=== PATIENT | male | born 1965 | race African-American/Black ===

== ENCOUNTER 2022-04-13 14:33 | Emergency (ER) | payer OTHER, SELFPAY ==
--- NOTE | ~2022-04-13 | XR_ITS ---
EXAMINATION: XR chest 1V portable 04/13/2022 15:47 INDICATION: Unresponsive. Hypertension. PROCEDURE: AP portable chest COMPARISON: No prior studies for comparison. FINDINGS: The lungs are clear. The cardiomediastinal silhouette is within normal limits. There are no pleural effusions. There is no pneumothorax suspected. IMPRESSION: 1: NO ACUTE CARDIOPULMONARY DISEASE. Reviewed, dictated and finalized at location B.
--- NOTE | ~2022-04-13 | CT_ITS ---
EXAMINATION: CT cervical spine wo con DATE: 04/13/2022 16:45 INDICATION: Neck injury. Unresponsive. TECHNIQUE: Computed tomography (CT) of the cervical spine was performed without intravenous contrast. Automated exposure control and iterative reconstruction technique were employed. The dose-length pro duct was 509.30 mGy-cm. COMPARISON: None FINDINGS: There is 2 mm retrolisthesis of C4 on C5, C5 on C6, and C6 on C7. Vertebral body heights ar e normal. There is severely decreased disc height from C3-C4 through C6-C7 with endplate remodeling. The following disc levels are specifically discussed: C2-C3: There is severe right and mild left uncovertebral joint osteoarthritis. There is mild bilatera l facet joint osteoarthritis. There is mild right neural foraminal stenosis. There is mild central ca nal stenosis. C3-C4: There is severe right and moderate left uncovertebral joint osteoarthritis. There is mild bila teral facet joint osteoarthritis. There is mild right neural foraminal stenosis. There is mild centra l canal stenosis. C4-C5: There is severe bilateral uncovertebral joint osteoarthritis. There is no facet joint osteoart hritis. There is mild left neural foraminal stenosis. There is mild central canal stenosis. C5-C6: There is severe bilateral uncovertebral joint osteoarthritis. There is mild bilateral facet edward int osteoarthritis. There is mild bilateral neural foraminal stenosis. There is mild central canal st enosis. C6-C7: There is severe bilateral uncovertebral joint osteoarthritis. There is moderate bilateral face t joint osteoarthritis. There is mild right and moderate left neural foraminal stenosis. There is mil d central canal stenosis. C7-T1: There is mild right uncovertebral joint osteoarthritis. There is moderate right and severe lef t facet joint osteoarthritis. There is mild bilateral neural foraminal stenosis. There is no central canal stenosis. IMPRESSION: 1. No fracture. 2. Severe cervical spondylosis. Reviewed, dictated and finalized at location A.
--- NOTE | ~2022-04-13 | CT_ITS ---
EXAMINATION: CT brain wo con DATE: 04/13/2022 16:44 INDICATION: Unresponsive. TECHNIQUE: Computed tomography (CT) of the head was performed without intravenous contrast. The mA wa s adjusted according to patient size. Iterative reconstruction technique was employed. The dose-lengt h product was 983.67 mGy-cm. COMPARISON: None FINDINGS: There is no intracranial hemorrhage, acute infarction, or abnormal intracranial mass lesion . The ventricles are normal in size. There is an old blowout fracture of medial wall of right orbit. The paranasal sinuses are clear. The mastoid air cells are normal. Partially visualized are fracture deformities of the nasal bones. IMPRESSION: 1. Normal brain. Reviewed, dictated and finalized at location A. IMPRESSION: 1. Normal brain.
[2022-04-13 14:53] VITALS: BP 139/108; PULSE 92; RESP 14; TEMP 36.1; O2SAT 95
--- NOTE | 2022-04-13 15:03 | ED.WEAKNESS ---
HPI - Weakness General Chief complaint: Weakness Stated complaint: weakness, ETOH, laying in front yard Time Seen by Provider: 04/13/22 15:03 Source: patient, EMS and RN notes reviewed Mode of arrival: EMS Limitations: no limitations History of Present Illness HPI Narrative: 56 years old -[place] male brought to the emergency room by ambulance because of weakness. Patient was found laying in front yard waiting for the bus. He denies any loss of consciousness, fall, head injury or any other injuries. Just feels mad because the bus waiting time. He denies loss of consciousness, head injury, or any other injuries. 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 Last urination was handy man today. He denies any suicidal or homicidal ideation. Related Data Allergies Allergy/AdvReac Type Severity Reaction Status Date / Time No Known Allergies Allergy Verified 04/13/22 15:04 Review of Systems Review of Systems: All systems reviewed & are unremarkable except as noted in HPI and below Exam Narrative: General appearance: Well-developed, well-nourished Skin: Normal color Head: Normocephalic, nontraumatic Eyes: Clear conjunctiva ENT: Oropharynx normal, ears normal, nose normal Neck: Supple, nontender Chest and respiratory: Airway patent, no respiratory distress, no accessory muscle use Heart: Regular rate/rhythm Abdomen: Soft, nontender, no organomegaly, quiet bowel sounds Vascular: Normal peripheral pulses, normal capillary refill. Musculoskeletal: Normal range of motion, nontender back Neurologic: Alert and oriented ?3, ANGIOGRAPHY NURSE is normal as tested, no gross motor deficit Course Vital Signs Vital signs: Vital Signs Temperature 36.1 C L 04/13/22 14:53 Pulse Rate 92 04/13/22 14:53 Respiratory Rate 14 04/13/22 14:53 Blood Pressure 139/108 H 04/13/22 14:53 Pulse Oximetry 95 04/13/22 14:53 Oxygen Delivery Room Air 04/13/22 14:53 Temperature 36.1 C L 04/13/22 14:53 Pulse Rate 77 04/13/22 15:25 Respiratory Rate 12 04/13/22 15:25 Blood Pressure 114/78 04/13/22 15:25 Pulse Oximetry 100 04/13/22 15:25 Oxygen Delivery Room Air 04/13/22 14:53 MDM - Weakness Differential Diagnosis Differential diagnosis: Likely hypoglycemia, dehydration and other (Alcoholic intoxication, drug abuse, electrolyte imbalance) Lab Data Result diagrams: 04/13/22 15:19 04/13/22 15:19 Labs: Lab Results 04/13/22 04/13/22 04/13/22 Range/Units 15:19 15:19 15:19 WBC 4.4 L (4.5-10.0) K/mm3 RBC 3.91 L (4.6-6.20) M/mm3 Hgb 12.5 L (14.0-18.0) g/dL Hct 36.2 L (42.0-52.0) % MCV 92.6 (80-100) fl MCH 32.0 (26-34) pg MCHC 34.5 (32-36) g/dl RDW 14.0 (11.5-14.5) % Plt Count 239 (150-375) k/mm3 MPV 8.9 (7.4-10.4) fl Immature Gran % (Auto) 0.0 (0-0.5) % Neut % (Auto) 55.4 (45.5-73.1) % Lymph % (Auto) 36.4 (18.3-44.2) % [place] % (Auto) 6.6 (2.6-8.5) % Eos % (Auto) 1.4 (0-4.4) % Baso % (Auto) 0.2 (0.2-1.2) % Lymph # (Auto) 1.60 (0.9-3.2) K/mm3 [place] # (Auto) 0.3 (0.1-0.6) K/mm3 Eos # (Auto) 0.1 (0-0.3) K/mm3 Baso # (Auto) 0.0 (0.0-0.1) K/mm3 Abs Immat Gran (auto) 0.00 (0.00-0.031) K/mm3 Absolute Neuts (auto) 2.4 (1.3-6.7) K/mm3 Absolute Nucleated RBC 0.0 (0.0-0.012) K/mm3 Nucleated RBC % 0.0 (0.0-0.2) % PT 13.0 (11.1-14.7) Seconds INR 1.0 APTT 27.9 (22.3-36.8) SECONDS Sodium 143 (137-145) mmol/L Potassium 3.0 L (3.4-5.0) mmol/L Chloride 101 (98-107) mmol/L Carbon Dioxide 2
--- NOTE | 2022-04-13 15:04 | ECG_ITS ---
Measurements Intervals [place] Rate: 78 P: 60 MS: 172 QRS: 42 QRSD: 90 T: 43 QT: 390 QTc: 446 Interpretive Statements SINUS RHYTHM WITH SINUS ARRHYTHMIA POSSIBLE LEFT ATRIAL ENLARGEMENT [-0.1mV P WAVE IN V1/V2] CANNOT RULE OUT SEPTAL INFARCT, AGE INDETERMINATE ABNORMAL ECG NO PREVIOUS ECG AVAILABLE FOR COMPARISON Electronically Signed On 04-13-2022 17:06:40 CDT by Damien Rashid M.D.
[2022-04-13 15:25] VITALS: BP 114/78; PULSE 77; RESP 12; O2SAT 100
[2022-04-13] MEDS: SODIUM CHLORIDE 0.9% IV 1,000 ML 999 ML IV CONT (15:29)
[2022-04-13 15:32] LABS: Basophils Percent Auto 0.2 % (0.2-1.2); Eosinophils Absolute Auto 0.1 K/mm3 (0-0.3); Eosinophils Percent Auto 1.4 % (0-4.4); Hematocrit 36.2 % (42.0-52.0); Hemoglobin 12.5 g/dL (14.0-18.0); Lymphocytes Percent Auto 36.4 % (18.3-44.2); Mean Corpuscular HGB Conc 34.5 g/dl (32-36); Mean Corpuscular Volume 92.6 fl (80-100); Mean Platelet Volume 8.9 fl (7.4-10.4); Monocytes Absolute Auto 0.3 K/mm3 (0.1-0.6); Monocytes Percent Auto 6.6 % (2.6-8.5); Neutrophils Absolute Auto 2.4 K/mm3 (1.3-6.7); Neutrophils Percent Auto 55.4 % (45.5-73.1); Platelet Count Result 239 k/mm3 (150-375); Red Blood Count 3.91 M/mm3 (4.6-6.20); White Blood Count 4.4 K/mm3 (4.5-10.0)
[2022-04-13 15:42] LABS: Partial Thromboplastin Time 27.9 SECONDS (22.3-36.8)
[2022-04-13 15:45] LABS: Ammonia 19 umol/L (9-30); Ethanol 212 mg/dL (<10)
[2022-04-13 15:46] LABS: Alanine Aminotransferase 24 U/L (6-50); Albumin Level 3.8 g/dL (3.5-5.1); Alkaline Phosphatase 65 U/L (38-126); Anion Gap 14 mmol/L (8-16); Aspartate Amino Transferase 43 U/L (17-59); Bilirubin,Total 0.2 mg/dL (0.2-1.3); Blood Urea Nitrogen 14 mg/dL (9-20); Calcium 8.2 mg/dL (8.4-10.2); Carbon Dioxide 28 mmol/L (22-30); Chloride 101 mmol/L (98-107); Creatine Kinase 562 U/L (55-170); Estimated CRCL calculation 61 ml/min; Estimated Glomerular Filt Rate > 60; Glucose 96 mg/dL (65-110); Sodium 143 mmol/L (137-145)
[2022-04-13 15:57] LABS: Appearance Urine Clear (Clear); Barbiturate Screen Urine Negative (Negative); Benzodiazepines Screen Urine Negative (Negative); Bilirubin Urine Negative (Negative); Blood Urine Negative (Negative); Cannabinoid Screen Urine Negative (Negative); Cocaine Screen Urine Negative (Negative); Color Urine Yellow (Yellow); Glucose Urine UA Negative (Negative); Ketones Urine Negative (Negative); Leukocyte Esterase Ur Negative LEU/UL (Negative); Methadone Screen Urine Negative (Negative); Nitrate Urine Negative (Negative); Opiate Screen Urine Negative (Negative); Phencyclidine Screen Urine Negative (Negative); Protein Urine Negative (Negative); Specific Grav Ur 1.015 (1.001-1.035); pH Urine 5.5 (5.0-9.0)
[2022-04-13 16:05] LABS: Add Urine Microscopic? YES; Mucus Urine Rare /lpf; RBC Urine 0-2 /hpf (0-2); Squamous Epithelial Cell Urine Rare /hpf (Few); WBC Urine 0-3 /hpf
[2022-04-13 16:11] LABS: Alveolar/Arterial O2 Gradient 26.2 mmHg; Base Excess ABG 0.7 mEq/l (+/-2.0); Fractional Inspired Oxygen 21 %; HCO3 ABG 26.6 mEq/l (22.0-26.0); Oxygen Content ABG 16.6 %vol (16.0-22.0); Oxygen Saturation ABG 92.4 % (95.0-100.0); Oxyhemoglobin 88.8 % THb (90.0-100.0); PCO2 ABG 47.7 mmHg (35.0-45.0); PO2 ABG 66.4 mmHg (80.0-100.0); PO2 FiO2 Ratio Arterial Blood 3.16 %; Total Hemoglobin 13.3 g/dL (12.0-18.0); pH ABG 7.365 (7.350-7.450)
[2022-04-13 16:13] LABS: Modified Allen's Test Unable to perform; Site Drawn RIGHT RADIAL
[2022-04-13 16:18] LABS: Amphetamine Screen Urine Positive (Negative)
--- NOTE | 2022-04-13 17:12 | PCCCNOTE ---
Dr. Sheets confirms that patient is homeless and based on workup will most likely be discharged from ED. Met with patient in room 5, Patient states he works 7-3:30 and is saving money, but he does not have a place to live. Occasionally will stay at his daughters house, but mainly will roam the streets of [place]. Patient will ride the bus sometimes if has moeny.Asked if he had a plan for tonight, patient states he will contact his daughter to stay with her tonight and will use the bus. Patient provided resources for homeless shelters, housing authorities, hotels and bus route pamphlet for pick up worker from [place]. Bus tokens given to his bedside RN Ester for transportation from ER. Updated Dr. Sheets.
[2022-04-13] MEDS: POTASSIUM CHLORIDE 20 MEQ PACKET (FOR LIQUID) 40 MEQ PO (17:13)
[2022-04-13 17:15] VITALS: BP 109/71; PULSE 74; RESP 18; O2SAT 100
[2022-04-13 17:46] VITALS: BP 124/76; PULSE 85; RESP 20; O2SAT 100
== END 2022-04-13 18:17 | disposition home or self-care (01) ==
PROVIDERS: Emergency Provider Emergency Medicine
DX: E87.6 Hypokalemia (principal); F10.10 Alcohol abuse, uncomplicated; F19.10 Other psychoactive substance abuse, uncomplicated; Y90.9 Presence of alcohol in blood, level not specified
CPT/HCPCS: 36415; 36600; 51701; 70450; 71045; 72125; 80053; 80307; 81001; 82140; 82550; 82805; 85025; 85610; 85730; 93005; 96360; 96361; 99284; A9270; J7030

== ENCOUNTER 2022-08-07 15:52 | Emergency (ER) | payer OTHER, SELFPAY ==
--- NOTE | ~2022-08-07 | XR_ITS ---
EXAMINATION: XR chest 1V portable Exam Date/Time: 08/07/2022 20:00 [employer] HISTORY: cough, NUMBN[place] AND [place]INGLING IN BOTH HANDS Comparison: 04/13/2022. RESULT: Lines, tubes, and devices: None. Lungs and pleura: Clear. Cardiomediastinal silhouette: Stable. Other: No acute osseous or upper abdominal finding. IMPRESSION: No acute cardiopulmonary process. Reviewed, dictated and finalized at location K. [employer]
--- NOTE | 2022-08-07 16:10 | PC.NURSE ---
Patient did not answer when called for triage at 1610
--- NOTE | 2022-08-07 16:24 | PC.NURSE ---
Patient did not answer when called for triage a second time
[2022-08-07 16:34] VITALS: BP 132/76; PULSE 73; RESP 14; TEMP 36.9; O2SAT 100
--- NOTE | 2022-08-07 19:54 | ECG_ITS ---
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
--- NOTE | 2022-08-07 20:05 | PC.NURSE ---
Pt reports bilateral hand swelling that started back in May. He went to [facility] and was prescribed medication which made the swelling go away. He does not remember what the medication was called. He ran out of the medication two weeks ago and the swelling has come back. He never followed up with a PCP after being seen at [facility]. ROM intact. Radial pulse palpable bilaterally. He also has 2+ pitting edema to bilateral lower legs. He denies chest pain or SOB.
[2022-08-07 20:08] LABS: Basophils Percent Auto 0.3 % (0.2-1.2); Eosinophils Absolute Auto 0.2 K/mm3 (0-0.3); Eosinophils Percent Auto 2.6 % (0-4.4); Hematocrit 36.8 % (42.0-52.0); Hemoglobin 11.8 g/dL (14.0-18.0); Immature Granulocyte Absolute 0.01 K/mm3 (0.00-0.031); Immature Granulocyte Percent A 0.2 % (0-0.5); Mean Corpuscular HGB Conc 32.1 g/dl (32-36); Mean Corpuscular Hemoglobin 31.3 pg (26-34); Mean Corpuscular Volume 97.6 fl (80-100); Mean Platelet Volume 8.9 fl (7.4-10.4); Monocytes Absolute Auto 0.5 K/mm3 (0.1-0.6); Monocytes Percent Auto 8.2 % (2.6-8.5); Neutrophils Absolute Auto 3.1 K/mm3 (1.3-6.7); Neutrophils Percent Auto 52.7 % (45.5-73.1); Platelet Count Result 258 k/mm3 (150-375); Red Blood Count 3.77 M/mm3 (4.6-6.20); Red Cell Distribution Width 14.2 % (11.5-14.5); White Blood Count 5.8 K/mm3 (4.5-10.0)
[2022-08-07 20:19] LABS: Alanine Aminotransferase 24 U/L (6-50); Albumin Level 3.6 g/dL (3.5-5.1); Alkaline Phosphatase 81 U/L (38-126); Anion Gap 3 mmol/L (8-16); Aspartate Amino Transferase 24 U/L (17-59); Bilirubin,Total 0.3 mg/dL (0.2-1.3); Blood Urea Nitrogen 16 mg/dL (9-20); Calcium 8.1 mg/dL (8.4-10.2); Carbon Dioxide 32 mmol/L (22-30); Chloride 106 mmol/L (98-107); Estimated CRCL calculation 90 ml/min; Estimated Glomerular Filt Rate > 60; Glucose 104 mg/dL (65-110); Magnesium 2.4 mg/dL (1.6-2.3); Potassium 3.6 mmol/L (3.4-5.0); Sodium 141 mmol/L (137-145)
[2022-08-07 20:27] LABS: NT Pro B Type Natriuretic Pept 27 pg/mL (19.9-100)
--- NOTE | 2022-08-07 20:50 | ED.GENADULT ---
HPI - General Adult General Chief complaint: Extremity Problem,Nontraumatic Stated complaint: HAND SWELLING Time Seen by Provider: 08/07/22 19:46 History of Present Illness HPI narrative: Is a 57-year-old gentleman who presents the emergency department with chief complaint of hand swelling. Patient reports that around [place] he noticed that he started having some swelling in his hands and was seen at [facility]. Patient reports they started him on a medication and the patient states that swelling went down patient reports that she did not follow-up with her primary care provider and reports that after running out of the medications the swelling started coming back the patient denies chest pain denies shortness of breath denies blood in the stool patient denies orthopnea denies PND. Related Data Allergies Allergy/AdvReac Type Severity Reaction Status Date / Time No Known Allergies Allergy Verified 04/13/22 15:04 Review of Systems Review of Systems: A 10 system review of systems was completed on the patient and is negative except for what is stated in the HPI. Nursing and ancillary documentation was reviewed. Exam Narrative: GENERAL: Well-appearing, well-nourished, and in no acute distress. HEAD: Normocephalic, atraumatic. EYES: PERRLA and EOMI. ENT: Nares clear, no rhinorrhea or epistaxis. Mucous membranes moist. NECK: Supple. CHEST: Clear to auscultation. No respiratory distress. HEART: Regular rate and rhythm. No murmur heard. Normal peripheral pulses. ABDOMEN: Soft, nontender, nondistended, normal active bowel sounds. EXTREMITIES: Normal range of motion. Trace edema. SKIN: Warm, dry, no rash. NEURO: No focal deficits. Alert and oriented x3. PSYCH: Normal mood and affect. Course Vital Signs Vital signs: Vital Signs Temperature 36.9 C 08/07/22 16:34 Pulse Rate 73 08/07/22 16:34 Respiratory Rate 14 08/07/22 16:34 Blood Pressure 132/76 08/07/22 16:34 Pulse Oximetry 100 08/07/22 16:34 Oxygen Delivery Room Air 08/07/22 16:34 Temperature 36.9 C 08/07/22 16:34 Pulse Rate 68 08/07/22 21:26 Respiratory Rate 16 08/07/22 21:26 Blood Pressure 144/107 H 08/07/22 21:26 Pulse Oximetry 99 08/07/22 21:26 Oxygen Delivery Room Air 08/07/22 16:34 Medical Decision Making MDM Narrative Medical decision making narrative: Differential diagnosis includes CHF, anemia, peripheral edema, renal failure, hypoalbuminemia Laboratory studies were obtained which showed a normal BNP normal hemoglobin normal renal function Patient's prior visits were obtained from [facility] the patient has seen there multiple times has been treated with anti-inflammatories before in the past. Vital Signs Vital Signs: Vital Signs Temperature 36.9 C 08/07/22 16:34 Pulse Rate 73 08/07/22 16:34 Respiratory Rate 14 08/07/22 16:34 Blood Pressure 132/76 08/07/22 16:34 Pulse Oximetry 100 08/07/22 16:34 Oxygen Delivery Room Air 08/07/22 16:34 Temperature 36.9 C 08/07/22 16:34 Pulse Rate 68 08/07/22 21:26 Respiratory Rate 16 08/07/22 21:26 Blood Pressure 144/107 H 08/07/22 21:26 Pulse Oximetry 99 08/07/22 21:26 Oxygen Delivery Room Air 08/07/22 16:34 Lab Data 08/07/22 20:02 08/07/22 20:02 Labs: Lab Results 08/07/22 08/07/22 08/07/22 Range/Units 20:02 20:02 22:02 WBC 5.8 (4.5-10.0) K/mm3 RBC 3.77 L (4.6-6.20) M/mm3 Hgb 11.8 L (14.0-18.0) g/dL Hct 36.8 L (42.0-52.0) % MCV 97.6 (80-100) fl MCH 31.3 (26-34) pg MCHC 32.1 (32-36) g/dl RDW 14.2 (11.5-14.5) % Plt Count 258 (150-375) k/mm3 MPV 8.9 (7.4-10.4) fl Immature Gran % (Auto) 0.2 (0-0.5) % Neut % (Auto) 52.7 (45.5-73.1) % Lymph % (Auto) 36.0 (18.3-44.2) % [place] % (Auto) 8.2 (2.6-8.5) % Eos % (Auto) 2.6 (0-4.4) % Baso % (Auto) 0.3 (0.2-1.2) % Lymph # (Auto) 2.10 (0.9-3.2) K/mm3 [place] # (Auto)
[2022-08-07 21:26] VITALS: BP 144/107; PULSE 68; RESP 16; O2SAT 99
[2022-08-07 22:08] LABS: Appearance Urine Clear (Clear); Bilirubin Urine 1+ (Negative); Blood Urine Negative (Negative); Color Urine Yellow (Yellow); Glucose Urine UA Negative (Negative); Ketones Urine Negative (Negative); Leukocyte Esterase Ur Negative LEU/UL (Negative); Nitrate Urine Negative (Negative); Protein Urine Negative (Negative); Specific Grav Ur 1.025 (1.001-1.035); pH Urine 6.5 (5.0-9.0)
[2022-08-07 22:14] LABS: Mucus Urine Few /lpf; RBC Urine 0-2 /hpf (0-2); Squamous Epithelial Cell Urine Occasional /hpf (Few); WBC Urine 0-3 /hpf
[2022-08-07 22:15] LABS: Add Urine Microscopic? YES
[2022-08-07 23:28] VITALS: BP 148/94; PULSE 88; RESP 16; O2SAT 98
== END 2022-08-07 23:29 | disposition home or self-care (01) ==
PROVIDERS: Emergency Provider Emergency Medicine
DX: M79.642 Pain in left hand (principal); M79.641 Pain in right hand
CPT/HCPCS: 36415; 71045; 80053; 81001; 83735; 83880; 85025; 93005; 99283